=== PATIENT | female | born 1985 | race Caucasian/White ===

== ENCOUNTER 2018-05-30 22:20 | Inpatient (IN) | payer OTHER ==
[~2018-05-30] VITALS: Ht 167.6 cm; Wt 89.0 kg
[2018-05-30] MEDS ORDERED: LACTATED RINGERS 1,000 ML IV SCH ×2 (23:13→23:30)
[2018-05-30] MEDS ORDERED: OXYTOCIN 30U/ 0.9% NaCL 500ML 500 ML IV SCH (23:13)
[2018-05-30] MEDS ORDERED: SODIUM CITRATE/CITRIC ACID 30 ML UDC ONE (23:18)
[2018-05-30] MEDS ORDERED: OXYTOCIN 30U/ 0.9% NaCL 500ML 500 ML ONE (23:19)
[2018-05-30] MEDS ORDERED: NEWBORN KIT ONE (23:19)
[2018-05-30] MEDS ORDERED: METOCLOPRAMIDE 5 MG/ML, 2ML ONE (23:19)
[2018-05-30] MEDS ORDERED: FENTANYL PF 100 MCG/2ML ONE (23:29)
[2018-05-30] MEDS ORDERED: METOCLOPRAMIDE 5 MG/ML, 2ML IV ONE (23:30)
[2018-05-30] MEDS ORDERED: FENTANYL PF 100 MCG/2ML IVPush PRN (23:30)
[2018-05-30] MEDS ORDERED: LACTATED RINGERS 1,000 ML IVBOLUS ONE (23:30)
[2018-05-30] MEDS ORDERED: SODIUM CITRATE/CITRIC ACID 30 ML UDC PO ONE (23:30)
[2018-05-30 23:57] LABS: BASOPHILS # (AUTO) 0.03 x10^3/uL (0-0.1); BASOPHILS % (AUTO) 0 % (0-1); EOSINOPHILS # (AUTO) 0.02 x10^3/uL (0-0.4); EOSINOPHILS % (AUTO) 0 % (1-7); LYMPHOCYTES # (AUTO) 1.53 x10^3/uL (1-3.4); LYMPHOCYTES % (AUTO) 15 % (22-44); MD NO; MEAN CORPUSCULAR HEMOGLOBIN 30.8 pg (27.0-34.8); MEAN CORPUSCULAR HGB CONC 34.2 g/dL (32.4-35.8); MEAN CORPUSCULAR VOLUME 89.9 fL (80-100); MEAN PLATELET VOLUME 7.7 fL (7.4-10.4); MONOCYTES % (AUTO) 7 % (2-9); NEUTROPHILS # (AUTO) 8.14 x10^3/uL (1.8-6.8); NEUTROPHILS % (AUTO) 78 % (42-75); PLATELET COUNT 204 x10^3/uL (130-400); RED BLOOD COUNT 3.83 x10^6/uL (3.82-5.3); RED CELL DISTRIBUTION WIDTH 13.6 % (9.6-15.2)
[2018-05-31] MEDS ORDERED: OXYTOCIN 30U/ 0.9% NaCL 500ML 500 ML IV SCH (00:13)
[2018-05-31] MEDS ORDERED: LACTATED RINGERS 1,000 ML IV SCH ×2 (00:13)
[2018-05-31] MEDS ORDERED: PHENYLEPHRINE 10 MG/ML ONE (00:18)
[2018-05-31] MEDS ORDERED: EPHEDRINE 50 MG/ML, 1ML ONE (00:18)
[2018-05-31] MEDS ORDERED: CEFAZOLIN 1,000 MG ONE (00:18)
[2018-05-31] MEDS ORDERED: ONDANSETRON 2MG/ML, 2ML ONE (00:18)
[2018-05-31] MEDS ORDERED: DEXAMETHASONE 4 MG/ML, 1ML ONE (00:18)
[2018-05-31] MEDS ORDERED: KETOROLAC 30 MG/1 ML ONE (00:18)
[2018-05-31] MEDS ORDERED: OXYTOCIN 10 UNITS/ML, 1ML ONE (00:18)
[2018-05-31] MEDS ORDERED: FENTANYL PF 100 MCG/2ML ONE (00:19)
[2018-05-31] MEDS ORDERED: morphine SULFATE 10 MG/ML, 1ML IVPush PRN ×4 (00:30→02:30)
[2018-05-31] MEDS ORDERED: MEPERIDINE/PF 25MG/0.5ML IVPush PRN (00:30)
[2018-05-31] MEDS ORDERED: ACETAMINOPHEN 325 MG TABLET PO PRN ×2 (00:30→02:30)
[2018-05-31] MEDS ORDERED: hydrALAzine 20 MG/ML, 1ML IV PRN (00:30)
[2018-05-31] MEDS ORDERED: METHYLERGONOVINE 0.2 MG/ML IM PRN (00:30)
[2018-05-31] MEDS ORDERED: DOCUSATE 100 MG CAPSULE PO PRN (00:30)
[2018-05-31] MEDS ORDERED: IBUPROFEN 600 MG TABLET PO PRN ×2 (00:30→02:30)
[2018-05-31] MEDS ORDERED: PROMETHAZINE 25 MG/ML, 1ML IV PRN (00:30)
[2018-05-31] MEDS ORDERED: HYDROmorphone 2 MG/ML, 1ML IVPush PRN (00:30)
[2018-05-31] MEDS ORDERED: OXYcodone 5 MG/5 ML ORAL.SOL UDC PO PRN (00:30)
[2018-05-31] MEDS ORDERED: MISOPROSTOL 200 MCG TABLET PR PRN ×2 (00:30→02:30)
[2018-05-31] MEDS ORDERED: EPHEDRINE 50 MG/ML, 1ML IVPush PRN (00:30)
[2018-05-31] MEDS ORDERED: FENTANYL PF 100 MCG/2ML IV PRN (00:30)
[2018-05-31] MEDS ORDERED: CARBOPROST TROMETHAMINE 250 MCG/ML, 1ML IM PRN (00:30)
[2018-05-31] MEDS ORDERED: ALBUTEROL SULFATE 2.5 MG/3 ML NPPB PRN (00:30)
[2018-05-31] MEDS ORDERED: LABETALOL 5MG/ML, 20ML IV PRN (00:30)
[2018-05-31] MEDS ORDERED: HYDROcodone/APAP 7.5-325MG/15ML UDC PO PRN (00:30)
[2018-05-31] MEDS ORDERED: MIDAZOLAM 1 MG/ML, 2ML IV PRN (00:30)
[2018-05-31] MEDS ORDERED: ONDANSETRON 2MG/ML, 2ML IV PRN ×2 (00:30→02:30)
[2018-05-31] MEDS ORDERED: OXYcodone/APAP 5/325MG TABLET PO PRN ×3 (00:30→02:30)
[2018-05-31] MEDS ORDERED: ONDANSETRON 2MG/ML, 2ML IVPush PRN (00:30)
[2018-05-31] MEDS ORDERED: HYDROmorphone 2 MG/ML, 1ML ONE (01:07)
[2018-05-31] MEDS: LACTATED RINGERS 1,000 ML IV SCH ×6 (02:14→22:14)
[2018-05-31] MEDS: OXYTOCIN 30U/ 0.9% NaCL 500ML 500 ML IV SCH ×3 (02:17→22:14)
[2018-05-31] MEDS ORDERED: BISACODYL 10 MG SUPP PR PRN (02:30)
[2018-05-31 02:50] VITALS: BP 112/72
[2018-05-31 07:10] VITALS: BP 110/66
[2018-05-31] MEDS: KETOROLAC 30 MG/1 ML IV SCH ×3 (07:18→19:30)
[2018-05-31] MEDS: DOCUSATE 100 MG CAPSULE PO PRN ×2 (07:54→19:53)
[2018-05-31] MEDS: PRENATAL VIT/IRON/FA 1 EACH TABLET PO SCH (07:54)
[2018-05-31 08:56] LABS: MEAN CORPUSCULAR HEMOGLOBIN 29.7 pg (27.0-34.8); MEAN CORPUSCULAR VOLUME 89.8 fL (80-100); MEAN PLATELET VOLUME 7.8 fL (7.4-10.4); PLATELET COUNT 177 x10^3/uL (130-400); RED BLOOD COUNT 3.79 x10^6/uL (3.82-5.3); RED CELL DISTRIBUTION WIDTH 13.4 % (9.6-15.2)
[2018-05-31] MEDS ORDERED: PRENATAL VIT/IRON/FA 1 EACH TABLET PO SCH (09:00)
[2018-05-31 09:20] LABS: BASOPHILS # (AUTO) 0.21 x10^3/uL (0-0.1); BASOPHILS % (AUTO) 2 % (0-1); EOSINOPHILS % (AUTO) 0 % (1-7); LYMPHOCYTES # (AUTO) 0.89 x10^3/uL (1-3.4); LYMPHOCYTES % (AUTO) 7 % (22-44); MD SCAN; MONOCYTES # (AUTO) 0.44 x10^3/uL (0.2-0.8); MONOCYTES % (AUTO) 3 % (2-9); NEUTROPHILS # (AUTO) 11.39 x10^3/uL (1.8-6.8); NEUTROPHILS % (AUTO) 88 % (42-75)
[2018-05-31] MEDS: OXYcodone/APAP 5/325MG TABLET PO PRN ×4 (10:56→20:25)
[2018-05-31 12:00] VITALS: BP 109/62
[2018-05-31 16:00] VITALS: BP 98/67
[2018-05-31] MEDS: METHIMAZOLE 5 MG TAB HOMEMEDPO SCH (19:54)
[2018-05-31 20:35] VITALS: BP 102/67
[2018-06-01] MEDS: OXYcodone/APAP 5/325MG TABLET PO PRN ×4 (01:28→22:05)
[2018-06-01] MEDS: KETOROLAC 30 MG/1 ML IV SCH ×4 (01:28→19:28)
[2018-06-01] MEDS: LACTATED RINGERS 1,000 ML IV SCH ×7 (02:14→23:24)
[2018-06-01 07:25] VITALS: BP 94/55
[2018-06-01] MEDS: PRENATAL VIT/IRON/FA 1 EACH TABLET PO SCH (08:03)
[2018-06-01] MEDS: OXYTOCIN 30U/ 0.9% NaCL 500ML 500 ML IV SCH ×3 (08:14→23:25)
[2018-06-01 19:49] VITALS: BP 105/67
[2018-06-01] MEDS: METHIMAZOLE 5 MG TAB HOMEMEDPO SCH (21:00)
[2018-06-01] MEDS: DOCUSATE 100 MG CAPSULE PO PRN (22:05)
[2018-06-02] MEDS: KETOROLAC 30 MG/1 ML IV SCH (01:15)
[2018-06-02] MEDS: OXYcodone/APAP 5/325MG TABLET PO PRN ×2 (02:15→06:47)
[2018-06-02 07:15] VITALS: BP 113/74
[2018-06-02] MEDS: PRENATAL VIT/IRON/FA 1 EACH TABLET PO SCH (08:09)
[2018-06-02] MEDS: DOCUSATE 100 MG CAPSULE PO PRN (08:09)
[2018-06-02] MEDS ORDERED: OXYC-302 PO (08:53)
[2018-06-02] MEDS ORDERED: SENN-92 PO (08:53)
[2018-06-02] MEDS ORDERED: IBUP-1222 PO (08:53)
== END 2018-06-02 17:15 | disposition home or self-care (01) | DRG 788 ==
LOC: LDOP 22:20 → LDIP 23:08 → 2NW 05-31 02:48
PROVIDERS: ADMIT Obstetrics & Gynecology; ATTEND Obstetrics & Gynecology
PROC: 10D00Z1 Extraction of Products of Conception, Low, Open Approach (ICD-10-PCS; principal; 2018-05-31)
DX: O32.2XX0 Maternal care for transverse and oblique lie, not applicable or unspecified (principal); O99.284 Endocrine, nutritional and metabolic diseases complicating childbirth; E06.3 Autoimmune thyroiditis; Z37.0 Single live birth; Z3A.40 40 weeks gestation of pregnancy
CPT/HCPCS: 36415; 76815; 82803; 85025; 86850; 86900; G0378; J0690; J1100; J1170; J1885; J2405; J3010; J2370; J2590; J2765; J7120